=== PATIENT | female | born 1955 | race Caucasian/White ===

== ENCOUNTER 2016-12-15 09:44 | Day surgery (SDC) | payer BC ==
[2016-12-11 13:20] VITALS: BMI 34.3
[~2016-12-15 09:44] MED LIST: LACTATED RINGERS 1,000 ML IV SCH; LIDOCAINE 1% 20 ML VIAL (10MG/ML) FOR IV START INTRADERMA PRN
[2016-12-15 10:43] VITALS: TEMP 97
[2016-12-15] MEDS ORDERED: PROPOFOL 10 MG/ML 20 ML VIAL IV ONE (11:50)
--- NOTE | 2016-12-15 12:27 | P.PCN ---
Date of Procedure: 12/15/16 Preoperative Diagnosis: Postoperative Diagnosis: Procedure(s) Performed: Procedure: Colonoscopy and biopsy. Preoperative diagnosis: Screening for neoplasia. Postoperative diagnosis: Small distal sigmoid polyp biopsied, otherwise, exam to the cecum within normal limits. Preparation: HalfLytely prep. Sedation: Was provided by anesthesia. Brief clinical history: The patient is 61-year-old female who is referred for this evaluation for screening for neoplasia. She had a prior exam around 12 years ago. She has no abdominal complaints, bleeding or anemia. No family history of colon cancer. Procedure: With the patient on her left lateral decubitus position and after informed consent and adequate sedation, the perianal area was inspected and it did not show any fissures or fistulas. There were no masses felt on digital rectal examination. The Olympus CFQ 160L video colonoscope was then inserted in the rectum in the usual fashion and advanced to the cecum. The mucosa appeared healthy. There was a small polyp in the distal sigmoid, probably representing a hyperplastic polyp, which was biopsied but there were no large polyps or cancer. No obvious diverticular disease or other pathology. I retroflexed the endoscope in the rectum before the endoscope was withdrawn. The patient tolerated the procedure well. Plan: The patient was reassured. Will await pathology results. Consideration will be given for repeat exam in around 5 years. She will follow-up with you as planned. Implants: Indications for Procedure: Operative Findings: Description of Procedure:
[2016-12-15 12:55] VITALS: BP 132/87; PULSE 63; RESP 18
== END 2016-12-15 13:20 | disposition home or self-care (01) ==
LOC: ORWHC2ENDO 09:44
DX: Z12.11 Encounter for screening for malignant neoplasm of colon (principal); D12.5 Benign neoplasm of sigmoid colon; E78.5 Hyperlipidemia, unspecified; G47.33 Obstructive sleep apnea (adult) (pediatric); Z99.89 Dependence on other enabling machines and devices; Z79.82 Long term (current) use of aspirin; Z79.899 Other long term (current) drug therapy; Z88.8 Allergy status to other drugs, medicaments and biological substances; Z91.09 Other allergy status, other than to drugs and biological substances
CPT/HCPCS: 88305; 45380; J2704

== ENCOUNTER → 2017-07-28 | Outpatient (CLI) | payer BC ==
--- NOTE | 2017-07-28 09:57 | BD ---
EXAMINATION TYPE: MG DEXA axial skeleton. DATE OF EXAM: 07/28/2017 COMPARISON: none CLINICAL HISTORY: osteopenia Height: 5'2 1/2 Weight: 183 FRAX RISK QUESTIONS: Alcohol (3 or more units per day): no Family History (Parent hip fracture): no Glucocorticoids (More than 3mos): no (Ex: prednisone, prednisolone, methylprednisolone, dexamethasone, and hydrocortisone). History of Fracture in Adulthood: no Secondary Osteoporosis: 1. Type 1 Diabetes: no 2. Hyperthyroidism: no 3. Menopause before 45: no 4. Malnutrition: no 5. Chronic liver disease: no Rheumatoid Arthritis: no Current Tobacco Use: no RISK FACTORS HISTORY OF: Surgery to Spine :L4-L5 When: 1997 Postmenopausal woman: MEDICATIONS: Additional Medications: cholesterol, water pill Additional History: EXAM MEASUREMENTS: Bone mineral densitometry was performed using the [employer] System. Bone mineral density about the R hip (g/cm2): 1.012 Bone mineral density about the L hip (g/cm2): 1.016 T Score values are as follows: -----R Neck: -0.2 -----L Neck: -0.2 -----R Total: 0.2 -----L Total: 0.7 IMPRESSION: No evidence for osteoporosis or osteopenia. NOTE: T-SCORE=SD OF THE YOUNG ADULT MEAN.
--- NOTE | 2017-07-29 10:57 | MM ---
Reason for exam: screening (asymptomatic). Last mammogram was performed 1 year and 4 months ago. History: Patient is postmenopausal. Family history of breast cancer in sister at age 54. Benign excisional biopsy of the left breast, 2002. Benign excisional biopsy of the right breast, 2000. Taking hormonal contraceptives for 15 years. Took estrogen for 10 years. Physical Findings: A clinical breast exam by your physician is recommended on an annual basis and results should be correlated with mammographic findings. MG Screening Mammo w CAD Bilateral CC and MLO view(s) were taken. Prior study comparison: April 03, 2016, mammogram, performed at [facility]. March 30, 2015, mammogram, performed at [facility]. March 28, 2014, mammogram, performed at [facility]. March 21, 2013, mammogram, performed at [facility]. Finding: There are typically benign fine, coarse, diffuse calcifications in both breasts. Previous mammotome biopsy in the left breast. No significant changes in finding since April 03, 2016, March 30, 2015, March 28, 2014, and March 21, 2013. ASSESSMENT: Benign, BI-RAD 2 RECOMMENDATION: Routine screening mammogram of both breasts in 1 year.
== END | disposition home or self-care (01) ==
LOC: RADMAMWWP 07:33
PROVIDERS: ATTEND Obstetrics & Gynecology
DX: Z12.31 Encounter for screening mammogram for malignant neoplasm of breast (principal); M85.80 Other specified disorders of bone density and structure, unspecified site
CPT/HCPCS: 77067; 77080

== ENCOUNTER → 2017-08-06 | Outpatient (CLI) | payer BC ==
--- NOTE | 2017-08-06 12:21 | PN ---
PROGRESS NOTE FOLLOW-UP VISIT DATE OF SERVICE: 08/06/2017 A 62-year-old lady had been followed in sleep center for treatment of obstructive sleep apnea-hypopnea syndrome. Patient is on treatment for obstructive sleep apnea for more than 5 years. Last visit 1 year ago. She continued to use her equipment every night for the whole night without problems. Sometimes she has slight noise from her machine. Otherwise, her machine works well. She does not have problem with humidity, pressure or mask. [place] Sleepiness Scale today is 3. I checked her CPAP unit. CPAP pressure is 8 cm of water, which has been prescribed. Usage is 28/30 nights for more than 4 hours. Apnea-hypopnea index reading from the machine is around 3, which is normal range. No leak from the mask by the reading from the machine. MEDICATIONS: Hydrochlorothiazide, simvastatin, aspirin. PHYSICAL EXAM: During physical exam, patient in no distress. VITAL SIGNS: BP 133/73, HR 66, RR 16, height 5 feet 2-1/2 inches, weight 180, BMI 32.3, temperature 97.9 oxygen saturation room air 100%. HEENT: PERRLA, EOMI. Oropharynx moderately low position of soft palate. NECK: Supple, no JVD. Thyroid is not palpable. LUNGS: Clear to percussion and to auscultation. Good air exchange. No wheezing or rhonchi. HEART: S1, S2 regular. No murmurs, gallops, or rubs. ABDOMEN: Slightly obese. EXTREMITIES: No clubbing or cyanosis. COMMUNICATIONS INSTRUCTOR: Awake, alert, and oriented X3. Cranial nerves 2 to 7 intact. There is no fasciculation or atrophy. noted. No focal deficits observed. IMPRESSION: 1. Obstructive sleep apnea-hypopnea syndrome on full control with CPAP at 8 cm of water. Patient demonstrated practically 100% compliance with treatment benefitting from treatment. 2. Mild obesity. 3. Hyperlipidemia. 4. History of back problems with herniated disc issues. 5. History of episodes of headaches in the past. 6. History of vertigo in the past. PLAN: 1. Continue treatment with CPAP every night for the whole night. 2. Watching and losing weight. The patient lost 13 pounds since previous visit. 3. Sleep hygiene with regular time in bed for at least 7-1/2 hours. 4. Patient is eligible to receive new CPAP unit. Her CPAP unit is more than 5 years old. If she will have any problem with her CPAP unit in the future, we will write for her prescription for new CPAP unit. Presently mild noise from the machine, otherwise machine works well. 5. Follow-up visit in 1 year or earlier if patient has any problems. Thank you very much for allowing me to participate in management of your patient. Sincerely, Christian Shin MD, PhD, FAASM Diplomat of [employer] Rag Cutting Machine Operator of [facility] [place] MMODL / IJN: [id number] /
== END | disposition home or self-care (01) ==
LOC: SLEEP 11:01
PROVIDERS: ATTEND Internal Medicine
DX: G47.33 Obstructive sleep apnea (adult) (pediatric) (principal); E66.9 Obesity, unspecified; E78.5 Hyperlipidemia, unspecified; Z79.899 Other long term (current) drug therapy; Z79.82 Long term (current) use of aspirin

== ENCOUNTER → 2018-05-03 | Outpatient (CLI) | payer BC ==
--- NOTE | 2018-05-03 15:29 | US ---
EXAMINATION TYPE: US kidneys/renal and bladder DATE OF EXAM: 05/03/2018 COMPARISON: NONE CLINICAL HISTORY: R31.2 Other microscopic hematuria. EXAM MEASUREMENTS: Right Kidney: 11.6 x 4.9 x 5.3 cm Left Kidney: 11.1 x 5.4 x 4.5 cm Right Kidney: prominent renal pelvis vs mild hydro. Left Kidney: echogenic foci, possible stone measuring 0.4 x 0.3 x 0.4cm Bladder: wnl There is no evidence for left-sided hydronephrosis at this point in time. No definite right-sided guy al calculi identified. No masses are identified. The urinary bladder is anechoic. Bilateral uretera l jets are seen. IMPRESSION: 1. Prominence of the right renal pelvis versus mild hydronephrosis. 2. Nonobstructing calculus left kidney.
== END | disposition home or self-care (01) ==
LOC: RADUSWWP 14:56
PROVIDERS: ATTEND Family Medicine
DX: N20.0 Calculus of kidney (principal)
CPT/HCPCS: 76770

== ENCOUNTER → 2018-07-29 | Outpatient (CLI) | payer BC ==
--- NOTE | 2018-07-29 15:05 | SFUN ---
SLEEP CENTER FOLLOW UP NOTE DATE OF SERVICE: 07/29/2018 A 63-year-old lady who has been followed in the Sleep Center for treatment of obstructive sleep apnea-hypopnea syndrome. Recently patient received new CPAP unit and she started to use it successfully without any significant problems related to mask fitting, pressure or humidification. [place] Sleepiness Scale today is 4. I checked her CPAP unit. CPAP pressure is 8 cm of water. Usage is 100% of the night more than more than 4 hours, average 6.0 hours. Leak is 14 L/minutes which is acceptable. Apnea-hypopnea index is only 0.7 which is absolutely perfect. MEDICATIONS: Hydrochlorothiazide, simvastatin, aspirin. PHYSICAL EXAM: Patient in no distress. BP 123/72, HR 72, RR 16, height 5 foot 2-1/4 inches, weight 182 pounds. Body mass index 33, temperature 98.2, oxygen saturation at room air 99%. OROPHARYNX: Moderately low position of soft palate. Neck Supple, no JVD. Thyroid is not palpable. LUNGS Clear to percussion and to auscultation. Good air exchange. No wheezing or rhonchi. HEART S1, S2 regular. No murmurs, gallops, or rubs. ABDOMEN Soft and nontender. Bowel sounds are present. No organomegaly appreciated. EXTREMITIES No clubbing or cyanosis. BROOM STITCHER Awake, alert, and oriented X3. Cranial nerves 2 to 7 intact. There is no fasciculation or atrophy. noted. No focal deficits observed. IMPRESSION: 1. Obstructive sleep apnea-hypopnea syndrome. Patient demonstrated 100% compliance with new CPAP unit, benefitting from treatment. 2. Mild obesity. 3. Hyperlipidemia. 4. History of back problems with herniated disc issues. 5. History of vertigo in the past. No recent episodes. 6. History of headaches in the past. No recent episodes. PLAN: 1. Patient will continue to use CPAP equipment every night for the whole night. 2. Watching and losing weight. 3. Sleep hygiene with regular time in bed for at least 8 hours. 4. No driving if feeling sleepiness. Thank you very much for allowing me to participate in the management of your patient. Sincerely, Christian Shin MD, PhD, FAASM Diplomat of [employer] Feed Mixer Helper of [facility] [place] MMODL / IJN: [id number] /
== END | disposition home or self-care (01) ==
LOC: SLEEP 13:12
PROVIDERS: ATTEND Internal Medicine
DX: G47.33 Obstructive sleep apnea (adult) (pediatric) (principal); E66.9 Obesity, unspecified; M51.26 Other intervertebral disc displacement, lumbar region; E78.5 Hyperlipidemia, unspecified; Z99.89 Dependence on other enabling machines and devices; Z79.82 Long term (current) use of aspirin; Z79.899 Other long term (current) drug therapy; Z86.69 Personal history of other diseases of the nervous system and sense organs; Z68.33 Body mass index [BMI] 33.0-33.9, adult

== ENCOUNTER → 2018-08-05 | Outpatient (CLI) | payer BC ==
--- NOTE | 2018-08-05 16:34 | US ---
EXAMINATION TYPE: US kidneys/renal and bladder DATE OF EXAM: 08/05/2018 COMPARISON: NONE CLINICAL HISTORY: N13.30 RT hydronephrosis,R93.4 F/U. EXAM MEASUREMENTS: Right Kidney: 11.5 x 4.8 x 5.2 cm Left Kidney: 11.4 x 5.0 x 4.7 cm Right Kidney: prominent renal pelvis vs mild hydro, inferior pole appears to have at least one echoge delmer foci ? stone Left Kidney: inferior pole as at least two echogenic foci ?stones Bladder: wnl Bilateral Jets seen: yes IMPRESSION: 1. Suggestion of some mild prominence of the inferior pole collecting system of the right kidney. Thi s could suggest an underlying duplicated system. No obstructing renal stone is identified. Nonobstruc ting renal stone may be at the inferior pole right kidney. 2. Left renal stones without evidence of obstruction.
== END ==
LOC: RADUSWWP 08:02
PROVIDERS: ATTEND Urology
DX: N13.2 Hydronephrosis with renal and ureteral calculous obstruction (principal); Z88.6 Allergy status to analgesic agent; Z91.048 Other nonmedicinal substance allergy status
CPT/HCPCS: 76770

== ENCOUNTER → 2018-08-30 | Outpatient (CLI) | payer BC ==
[2018-08-30 13:17] LABS: Blood Urea Nitrogen 16 mg/dL (7-17)
--- NOTE | 2018-08-30 17:45 | CT ---
EXAMINATION TYPE: CT abdomen pelvis w con DATE OF EXAM: 08/30/2018 COMPARISON: 08/05/2018 ultrasound INDICATION: Unspecifed hydronephrosis DLP: 1423 mGycm, Automated exposure control for dose reduction was used. CONTRAST: 100 ml mL of Isovue 300. Study performed with Oral Contrast TECHNIQUE: Axial images were obtained from above the diaphragm to the pubic rami in the axial plane a t 5 mm thick sections. Reconstructed images are reviewed on the computer in the coronal plane. FINDINGS: Limited CT sections are obtained the lung bases. The lung bases are clear. CT ABDOMEN: Liver: Normal Spleen: Normal Pancreas: Normal Adrenal glands: The adrenal glands are normal. Gallbladder: Normal Kidneys: No masses are evident. No hydronephrosis is present. No cysts are present. Appears to be some mild hydroureter on the right be traced to the urinary bladder. No obstructing renal or ureteral stones. Aorta: Vascular calcification is within the aorta. Inferior vena cava: Normal. CT PELVIS: Loops of bowel within the abdomen and pelvis are normal. There are loops of bowel which are incom pletely distended or lack oral contrast limiting their evaluation. Appendix: Normal as visualized Urinary bladder: Normal. Genitourinary structures: Uterus and ovaries are not identified. No free fluid is within the pelvis. Osseous structures: No suspicious lytic or sclerotic lesions. IMPRESSIONS: 1. There is a mild right hydroureter which extends urinary bladder. No obstructing renal or ureteral stones are evident
== END ==
LOC: RADCTMAIN 12:27
PROVIDERS: ATTEND Urology
DX: N13.4 Hydroureter (principal); Z91.048 Other nonmedicinal substance allergy status
CPT/HCPCS: 82565; 84520; 74177; 36415; Q9967

== ENCOUNTER → 2018-09-06 | Outpatient (CLI) | payer BC ==
--- NOTE | 2018-09-07 09:25 | MM ---
Reason for exam: screening (asymptomatic). Last mammogram was performed 1 year and 1 month ago. History: Patient is postmenopausal. Family history of breast cancer in sister at age 54. Benign excisional biopsy of the left breast, 2002. Benign excisional biopsy of the right breast, 2000. Taking hormonal contraceptives for 15 years. Took estrogen for 10 years. Physical Findings: A clinical breast exam by your physician is recommended on an annual basis and results should be correlated with mammographic findings. MG 3D Screening Mammo W/Cad Bilateral CC and MLO view(s) were taken. Prior study comparison: July 28, 2017, bilateral MG screening mammo w CAD. April 03, 2016, mammogram, performed at [facility]. The breast tissue is heterogeneously dense. This may lower the sensitivity of mammography. There are benign appearing round dystrophic calcifications bilaterally. Previous mammotome biopsy in the left breast. There is no discrete abnormality. ASSESSMENT: Benign, BI-RAD 2 RECOMMENDATION: Routine screening mammogram of both breasts in 1 year.
== END | disposition home or self-care (01) ==
LOC: RADMAMWWP 08:37
PROVIDERS: ATTEND Obstetrics & Gynecology
DX: Z12.31 Encounter for screening mammogram for malignant neoplasm of breast (principal)
CPT/HCPCS: 77063; 77067

== ENCOUNTER → 2019-08-03 | Outpatient (CLI) | payer BC ==
--- NOTE | 2019-08-03 12:00 | SFUN ---
SLEEP CENTER FOLLOW UP NOTE DATE OF SERVICE: 08/03/2019 A 64-year-old lady who has been followed in the Sleep Center for treatment of obstructive sleep apnea-hypopnea syndrome. Last time I saw patient 1 year ago. She continued to use CPAP equipment every night for the whole night, no snoring with the machine. She is receiving all her CPAP supplies in time. [place] Sleepiness Scale today is 5. I checked the CPAP unit. CPAP pressure to 8 cm of water. Usage is 100% of nights more than 8 hours. Average usage 6.2 hours per night. Pressure is 8 cm of water. Leak is 8 L/minute, which is absolutely perfect. The patient is using nasal pillow mask [employer] FX. Apnea-hypopnea index only 0.8, which is perfect. MEDICATIONS: Simvastatin, hydrochlorothiazide, aspirin. PHYSICAL EXAM: Patient in no distress. BP 140/84, HR 70, RR 16, height 5, 2 inches, weight 189.8 pounds, body mass index 34.5, temperature 97.8, oxygen saturation at room air 99%. OROPHARYNX: Low position of soft palate, Mallampati 3-4. ABDOMEN: Obese. NECK: Supple, no JVD. Thyroid is not palpable. LUNGS: Clear to percussion and to auscultation. Good air exchange. No wheezing or rhonchi. HEART: S1, S2 regular. No murmurs, gallops, or rubs. EXTREMITIES: No clubbing or cyanosis. BEAN SPROUT GROWER: Awake, alert, and oriented X3. Cranial nerves 2 to 7 intact. There is no fasciculation or atrophy. noted. No focal deficits observed. IMPRESSION: 1. Obstructive sleep apnea-hypopnea syndrome. Patient demonstrated 100% compliance with treatment, benefitting from treatment. 2. Mild obesity, patient increased her weight 7 pounds since the previous visit. 3. Hyperlipidemia. 4. History of back problems with issues related to herniated disc. 5. History of vertigo in the past. No recent episodes. 6. History of headaches in the past. No recent episodes. PLAN: 1. Patient will continue to use CPAP equipment every night for the whole night. 2. Watching and losing weight. 3. I will maintain all necessary prescriptions including the prescription for [employer] FX nasal pillow mask, heated tube, filters. 4. Precautions related to driving. No driving if feeling sleepiness. 5. Sleep hygiene with regular time in bed for at least 8 hours. 6. Follow-up visit in 1 year or earlier if patient has any problems. Thank you very much for allowing me to participate in the management of your patient. Sincerely, Christian Shin MD, PhD, FAASM Diplomat of [employer] Ingredient Mixer of [facility] [place] MMODL / ELAINAN: [id number] /
== END | disposition home or self-care (01) ==
LOC: SLEEP 10:35
PROVIDERS: ATTEND Internal Medicine
DX: G47.33 Obstructive sleep apnea (adult) (pediatric) (principal); E66.9 Obesity, unspecified; E78.5 Hyperlipidemia, unspecified; Z86.69 Personal history of other diseases of the nervous system and sense organs; Z87.39 Personal history of other diseases of the musculoskeletal system and connective tissue; Z68.34 Body mass index [BMI] 34.0-34.9, adult; Z79.82 Long term (current) use of aspirin; Z79.899 Other long term (current) drug therapy

== ENCOUNTER → 2020-04-26 | Outpatient (CLI) | payer MEDICARE ==
--- NOTE | 2020-04-30 09:14 | MM ---
Reason for exam: screening (asymptomatic). Last mammogram was performed 1 year and 8 months ago. History: Patient is postmenopausal and had first child at age 37. Family history of breast cancer in sister at age 54. Benign excisional biopsy of the left breast, 2002. Benign excisional biopsy of the right breast, 2000. Took hormonal contraceptives for 15 years. Took estrogen for 10 years. Physical Findings: A clinical breast exam by your physician is recommended on an annual basis and results should be correlated with mammographic findings. MG 3D Screening Mammo W/Cad Bilateral CC and MLO view(s) were taken. Prior study comparison: September 06, 2018, bilateral MG 3d screening mammo w/cad. July 28, 2017, bilateral MG screening mammo w CAD. There are scattered fibroglandular densities. Finding #1: There is an oval mass in the middle position of the right breast. Finding #2: There are calcifications in both breasts. No significant changes in finding since September 06, 2018 and July 28, 2017. ASSESSMENT: Benign, BI-RAD 2 RECOMMENDATION: Routine screening mammogram of both breasts in 1 year.
== END | disposition home or self-care (01) ==
LOC: RADMAMWWP 11:35
PROVIDERS: ATTEND Obstetrics & Gynecology
DX: Z12.31 Encounter for screening mammogram for malignant neoplasm of breast (principal)
CPT/HCPCS: 77063; 77067

== ENCOUNTER → 2020-09-05 | Outpatient (CLI) | payer MEDICARE ==
--- NOTE | 2020-09-05 18:00 | SFUN ---
SLEEP CENTER FOLLOW UP NOTE DATE OF SERVICE: 09/05/2020 This patient is a 65-year-old lady who has been followed in Sleep Center for treatment of obstructive sleep apnea-hypopnea syndrome. The patient continues to use her CPAP equipment every night for the whole night. Sometimes she has problems with falling asleep. [place] Sleepiness Scale today is 5. I checked her CPAP unit. CPAP pressure is 8 cm of water. Usage is 100% of nights for more than 4 hours. Average 5.8 hours per night. Leak is 12 L/minute, which is borderline. Apnea-hypopnea index is only 1.3, which is totally perfect. MEDICATIONS: Simvastatin 40 mg once a day, hydrochlorothiazide 50 mg once a day, tramadol 50 mg as needed. PHYSICAL EXAMINATION: GENERAL: A pleasant patient in no distress. VITAL SIGNS: BP 145/75, HR 88, RR 12, height 5 feet 2-1/2 inches, weight pounds, temperature 97.8, oxygen saturation at room air 98%. HEENT: PERRLA, EOMI. Evaluation of oropharynx showed tongue protrudes midline. Low position of soft palate. Mallampati III to IV. NECK: Supple. No JVD. Thyroid is not palpable. LUNGS: Clear to percussion and to auscultation. Good air exchange. No wheezing or rhonchi. HEART: S1, S2 regular. No murmurs, gallops or rubs. ABDOMEN: Soft and nontender. Bowel sounds are present. No organomegaly appreciated. EXTREMITIES: No clubbing or cyanosis. TRIAL MGR: Awake, alert, and oriented X3. Cranial nerves 2 to 7 intact. There is no fasciculation or atrophy. noted. No focal deficits observed. IMPRESSION: 1. Obstructive sleep apnea-hypopnea syndrome. The patient demonstrated 100% compliance with treatment, benefitting from treatment. 2. Mild obesity; body mass index 30.2. 3. Hyperlipidemia. 4. History of back problems related to herniated disc. 5. History of vertigo in the past. No recent problems. 6. History of headaches in the past. No recent problems. PLAN: 1. Patient will continue to use PAP equipment every night for the whole night. 2. Sleep hygiene with regular time in bed for at least 7-1/2 to 8 hours. 3. Precautions related to driving. No driving if feeling sleepiness. 4. I will maintain all necessary prescription for PAP supplies including mask, tube, filters. 5. Watching weight. 6. No driving if feeling sleepiness. 7. Follow-up visit in 6 months or earlier if patient has any problems. Thank you very much for allowing me to participate in the management of your patient. Sincerely, Christian Shin MD, PhD, FAASM Diplomat of [employer] Preschool Assistant Teacher of [facility] [place] MMODL / IJN: [id number] /
== END | disposition home or self-care (01) ==
LOC: SLEEP 10:21
PROVIDERS: ATTEND Internal Medicine
DX: G47.33 Obstructive sleep apnea (adult) (pediatric) (principal); E78.5 Hyperlipidemia, unspecified; E66.9 Obesity, unspecified; Z86.69 Personal history of other diseases of the nervous system and sense organs; Z68.30 Body mass index [BMI] 30.0-30.9, adult; Z99.89 Dependence on other enabling machines and devices; Z79.891 Long term (current) use of opiate analgesic; Z79.899 Other long term (current) drug therapy

== ENCOUNTER → 2021-01-08 | Outpatient (CLI) | payer MEDICARE ==
--- NOTE | 2021-01-08 14:44 | XR ---
EXAMINATION TYPE: XR knee complete bilateral DATE OF EXAM: 01/08/2021 CLINICAL HISTORY: Bilateral knee pain TECHNIQUE: Three views of the bilateral knee are obtained. COMPARISON: None. FINDINGS: Left: No evidence of acute fracture or dislocation of the left knee. Spurring of the tibia l spines are seen. Mild medial compartment joint space narrowing and patellofemoral compartment joint space narrowing suggestive of osteoarthritis. No significant joint effusion. Soft tissues are unrema rkable. Right knee: No evidence of fracture or dislocation of the right knee. Mild medial and patellofemoral compartment joint space narrowing with spurring of the medial femoral condyle, and tibial spines. The se findings are suggestive of osteoarthritis. Soft tissues are unremarkable. No significant joint eff usion. IMPRESSION: 1. No acute fracture or dislocation of the bilateral knees. Mild bilateral osteoarthritis of the knee s as described above.
== END | disposition home or self-care (01) ==
LOC: RADXRYALE 09:56
PROVIDERS: ATTEND Physician Assistant Medical
DX: M17.0 Bilateral primary osteoarthritis of knee (principal)

== ENCOUNTER → 2021-05-07 | Outpatient (CLI) | payer MEDICARE ==
--- NOTE | 2021-05-08 10:42 | MM ---
Reason for exam: screening (asymptomatic). Last mammogram was performed 1 year ago. History: Patient is postmenopausal and had first child at age 37. Family history of breast cancer in sister at age 54. Benign excisional biopsy of the left breast, 2002. Benign excisional biopsy of the right breast, 2000. Took hormonal contraceptives for 15 years. Took estrogen for 10 years. Physical Findings: A clinical breast exam by your physician is recommended on an annual basis and results should be correlated with mammographic findings. MG 3D Screening Mammo W/Cad Bilateral CC and MLO view(s) were taken. Prior study comparison: April 26, 2020, bilateral MG 3d screening mammo w/cad. September 06, 2018, bilateral MG 3d screening mammo w/cad. The breast tissue is heterogeneously dense. This may lower the sensitivity of mammography. Stable benign calcifications. There is no discrete abnormality. No significant changes when compared with prior studies. ASSESSMENT: Benign, BI-RAD 2 RECOMMENDATION: Routine screening mammogram of both breasts in 1 year.
== END | disposition home or self-care (01) ==
LOC: RADMAMWWP 09:00
PROVIDERS: ATTEND Obstetrics & Gynecology
DX: Z12.31 Encounter for screening mammogram for malignant neoplasm of breast (principal); Z80.3 Family history of malignant neoplasm of breast; Z78.0 Asymptomatic menopausal state
CPT/HCPCS: 77063; 77067

== ENCOUNTER → 2021-05-24 | Outpatient (CLI) | payer MEDICARE ==
--- NOTE | 2021-05-24 14:19 | XR ---
EXAMINATION TYPE: XR hand complete LT DATE OF EXAM: 05/24/2021 CLINICAL HISTORY: Hand in particular thumb pain for 3 weeks TECHNIQUE: Frontal, lateral and oblique images of the left hand are obtained. COMPARISON: None. FINDINGS: There is no acute fracture/dislocation evident in the left hand. Mild to moderate narrowin g base of first metacarpal. Mild narrowing throughout the PIP and DIP joints of the phalanges . Mild narrowing first interphalangeal joint. Relative sparing of MCP joints. No significant spurring. Mild- to-moderate diffuse soft tissue swelling. IMPRESSION: As above.
== END | disposition home or self-care (01) ==
LOC: RADXRYALE 08:54
PROVIDERS: ATTEND Physician Assistant
DX: M25.842 Other specified joint disorders, left hand (principal)

== ENCOUNTER → 2021-05-30 | Outpatient (CLI) | payer MEDICARE ==
--- NOTE | 2021-05-30 11:48 | SFUN ---
SLEEP CENTER FOLLOW UP NOTE DATE OF SERVICE: 05/30/2021 66-year-old lady has been followed in Sleep Center for treatment of obstructive sleep apnea-hypopnea syndrome. The patient continued to use her CPAP equipment every night for the whole night getting her supplies in time. [place] Sleepiness Scale today is only 2. I checked her CPAP unit, pressure is 8 cm of water. Usage is 100% of nights and 26/30 nights for the last months more than 4 hours. Average 5.3 hours per night which is good compliance. Leak is 10 L/minute which is normal. Apnea-hypopnea index is only 0.5 which is absolutely perfect. CURRENT MEDICATIONS: Hydrochlorothiazide 50 mg once a day, simvastatin 40 mg once a day, tramadol 50 mg once a day. PHYSICAL EXAMINATION: GENERAL: Patient in no distress. BP 160/79, HR 82, RR 15, height 5 feet 2-1/2 inches, weight 185 pounds, body mass index 33.2, temperature 97.8, oxygen saturation at room air 98%. Oropharynx: Low position of soft palate, Mallampati 3-4. NECK: Supple, no JVD. Thyroid is not palpable. LUNGS: Clear to percussion and to auscultation. Good air exchange. No wheezing or rhonchi. HEART: S1, S2 regular. No murmurs, gallops, or rubs. ABDOMEN: Soft and nontender. Bowel sounds are present. No organomegaly appreciated. EXTREMITIES: No clubbing or cyanosis. BULL RIDER: Awake, alert, and oriented X3. Cranial nerves 2 to 7 intact. There is no fasciculation or atrophy. noted. No focal deficits observed. IMPRESSION: 1. Obstructive sleep apnea-hypopnea syndrome. Patient demonstrated great compliance with treatment benefitting from treatment. 2. Mild obesity, BMI 33.2. 3. Hyperlipidemia. 4. History of back problems related to herniated disk. 5. Increased blood pressures today in the office. 6. History of vertigo in the past. Occasionally episodes of vertigo. 7. History of episodes of headaches. PLAN: 1. Monitoring blood pressure, low-sodium diet. 2. Change air filter immediately in bad shape. 3. Patient will continue to use PAP equipment every night for the whole night. 4. Sleep hygiene with regular time in bed for at least 7-1/2 to 8 hours. 5. Precautions related to driving. No driving if feeling sleepiness. 6. I will maintain all necessary prescription for PAP supplies including mask, tube, filters. 7. Watching weight. 8. Follow-up visit in 6 months or earlier if patient has any problems. Thank you very much for allowing me to participate in management of your patient. Sincerely, Christian Shin MD, PhD, FAASM Diplomat of [place] [employer] Sleep Medicine Board of [place] [employer] Information And Referral Director of [facility] [place] MMODL / ELAINAN: [id number] /
== END ==
LOC: SLEEP 11:03
PROVIDERS: ATTEND Internal Medicine
DX: G47.33 Obstructive sleep apnea (adult) (pediatric) (principal); E66.9 Obesity, unspecified; E78.5 Hyperlipidemia, unspecified; R03.0 Elevated blood-pressure reading, without diagnosis of hypertension; R42 Dizziness and giddiness; Z87.39 Personal history of other diseases of the musculoskeletal system and connective tissue; Z68.33 Body mass index [BMI] 33.0-33.9, adult; Z87.898 Personal history of other specified conditions; Z88.6 Allergy status to analgesic agent; Z91.041 Radiographic dye allergy status

== ENCOUNTER → 2021-11-27 | Outpatient (CLI) | payer MEDICARE ==
--- NOTE | 2021-11-27 13:46 | SFUN ---
SLEEP CENTER FOLLOW UP NOTE DATE OF SERVICE: 11/27/2021 This 66-year-old lady has been followed in Sleep Center for treatment of obstructive sleep apnea-hypopnea syndrome. The patient continues to use her CPAP equipment every night. Sometimes she falls asleep in the evening while watching TV and then has difficulties initiating sleep. I checked her CPAP unit. Pressure is 8 cm of water. Usage is 30/30 nights for more than 4 hours, average 5.9 hours per night. Leak is 12 L/minute, which is in normal range. Apnea-hypopnea index is , which is normal. [place] Sleepiness Scale 3. MEDICATIONS: 1. Simvastatin 40 mg once a day. 2. Hydrochlorothiazide 50 mg once a day. 3. Tramadol mg as needed. PHYSICAL EXAMINATION: GENERAL: Pleasant patient in no distress. VITAL SIGNS: BP 138/76, HR 64, RR 14, height 5 feet 2-1/2 inches, weight 193 pounds, temperature 96.8, oxygen saturation at room air 99%. HEENT: PERRLA, EOMI, evaluation of oropharynx showed tongue protrudes midline. Low position of soft palate; Mallampati III to IV. NECK: Supple, no JVD. Thyroid is not palpable. LUNGS: Clear to percussion and to auscultation. Good air exchange. No wheezing or rhonchi. HEART: S1, S2 regular. No murmurs, gallops, or rubs. ABDOMEN: Soft and nontender. Bowel sounds are present. No organomegaly appreciated. EXTREMITIES: No clubbing or cyanosis. CHEST PAINTING AND SEALING SUPERVISOR: Awake, alert, and oriented X3. Cranial nerves 2 to 7 intact. There is no fasciculation or atrophy. noted. No focal deficits observed. IMPRESSION: 1. Obstructive sleep apnea-hypopnea syndrome. Patient demonstrated 100% compliance with treatment. Normal respiration on CPAP, benefitting from treatment. 2. History of vertigo in the past. Occasionally she still has episodes of vertigo. 3. Hyperlipidemia. 4. Mild obesity. 5. History of back problems related to herniated disk. 6. History of headaches. PLAN: 1. Patient will continue to use PAP equipment every night for the whole night. 2. Sleep hygiene with regular time in bed for at least 7-1/2 to 8 hours. 3. Precautions related to driving. No driving if feeling sleepiness. 4. I will maintain all necessary prescription for PAP supplies including mask, tube, filters. 5. Watching weight. 6. Follow-up visit in 6 months or earlier if patient has any problems. Thank you very much for allowing me to participate in the management of your patient. Sincerely, Christian Shin MD, PhD, FAASM Diplomat of [place] [employer] Sleep Medicine Board of [place] [employer] [facility] [place] MMODL / ELAINAN: [id number] /
== END ==
LOC: SLEEP 09:44
PROVIDERS: ATTEND Internal Medicine
DX: G47.33 Obstructive sleep apnea (adult) (pediatric) (principal); Z99.89 Dependence on other enabling machines and devices; E78.5 Hyperlipidemia, unspecified; E66.9 Obesity, unspecified; Z86.69 Personal history of other diseases of the nervous system and sense organs; Z87.39 Personal history of other diseases of the musculoskeletal system and connective tissue; Z88.6 Allergy status to analgesic agent; Z91.041 Radiographic dye allergy status

== ENCOUNTER → 2022-05-08 | Outpatient (CLI) | payer MEDICARE ==
--- NOTE | 2022-05-08 09:28 | MM ---
Reason for Exam: Screening (asymptomatic). Last screening mammogram was performed 12 month(s) ago. Patient History: Menarche at age 13. First Full-Term at age 37. Late child-bearing (after 30). Left ovary removed at age 52. Right ovary removed at age 52. Hysterectomy at age 52. Postmenopausal. Patient used Estrogen for 10 years. Patient used Hormonal Contraceptives for 15 years. 2000, Benign Excisional Biopsy on the right side. 2002, Benign Excisional Biopsy on the left side. Sister had breast cancer, age 54. Risk Values: Shey 5 year model risk: 5.1%. NCI Lifetime model risk: 16.6%. Prior Study Comparison: 09/06/2018 Bilateral Screening Mammogram, [facility]. 04/26/2020 Bilateral Screening Mammogram, [facility]. 05/07/2021 Bilateral Screening Mammogram, [facility]. Tissue Density: The breast tissue is heterogeneously dense. This may lower the sensitivity of mammography. Findings: Analyzed By CAD. There is no suspicious group of microcalcifications or new suspicious mass in either breast. Stable benign calcifications bilaterally. No significant change from prior exams. Overall Assessment: Benign, BI-RAD 2 Management: Screening Mammogram of both breasts in 1 year. A clinical breast exam by your physician is recommended on an annual basis and results should be correlated with mammographic findings. Electronically signed and approved by: Cameron Virk D.O.
--- NOTE | 2022-05-08 17:07 | BD ---
EXAMINATION TYPE: Axial Bone Density DATE OF EXAM: 05/08/2022 CLINICAL HISTORY: 67 years year old Female. ICD-10 CODE: M859 DISORDER OF BONE DENSITY AND STRUCTURE Height: 5 FT 2 1/ 2IN Weight: 193 FRAX RISK QUESTIONS: Alcohol (3 or more units per day): NO Family History (Parent hip fracture): NO Glucocorticoids (More than 3mos): NO (Ex: prednisone, prednisolone, methylprednisolone, dexamethasone, and hydrocortisone). History of Fracture in Adulthood: NO Secondary Osteoporosis: 1. Type 1 Diabetes: NO 2. Hyperthyroidism: NO 3. Menopause before 45: NO 4. Malnutrition: NO 5. Chronic liver disease: NO Rheumatoid Arthritis: NO Current Tobacco Use: NO RISK FACTORS HISTORY OF: Surgery to Spine/Hip(right/left)/Wrist (right/left): LUMBAR When: 1997 Family History of Osteoporosis: NO Active: YES Diet low in dairy products/other sources of calcium: NO Postmenopausal woman: YES Take estrogen and/or progesterone medications: NONE NOW Lost more than 2 inches in height since high school: NO Frequent falls: NO Poor Health: GOOD Hyperparathyroidism: NO Adrenal Insufficiency: NO MEDICATIONS: Additional Medications: SIMVASTATIN, H2O PILL, Additional History: EXAM MEASUREMENTS: Bone mineral density about the R hip (g/cm2): 0.962 Bone mineral density about the L hip (g/cm2): 0.991 T Score values are as follows: -----R Neck: -0.5 -----L Neck: -0.3 -----R Total: 0.0 -----L Total: 0.4 Bone mineral density has: DECREASED -3.5 % since study of: 2018 Bone mineral density about the L Wrist (g/cm2): 0.649 T Score values are as follows: -----Dist. R+U: -0.3 -----Prox. R+U: -0.5 -----Radius total: -0.4 FIRST TIME WRIST HAS BEEN DONE FRAX%s: The graph provided illustrates a 7.1 % chance for a major osteoporotic fx and a 0.4 % chance for the hips probability for fx in 10 years time. IMPRESSION: Normal (Values between +1 and -1 indicate normal bone mass). Consider repeating this study in 5 year s or sooner if there is some new clinical indication. NOTE: T-SCORE=SD OF THE YOUNG ADULT MEAN.
== END | disposition home or self-care (01) ==
LOC: RADMAMWWP 06:38
PROVIDERS: ATTEND Family Medicine
DX: Z12.31 Encounter for screening mammogram for malignant neoplasm of breast (principal); Z78.0 Asymptomatic menopausal state; Z80.3 Family history of malignant neoplasm of breast
CPT/HCPCS: 77063; 77067; 77080

== ENCOUNTER 2022-06-03 11:01 | Day surgery (SDC) | payer MEDICARE ==
[2022-05-30 15:06] VITALS: BMI 34.7
[~2022-06-03 11:01] MED LIST changes: +LIDOCAINE 1% (10MG/ML) FOR IV START INTRADERMA PRN; -LIDOCAINE 1% 20 ML VIAL (10MG/ML) FOR IV START INTRADERMA PRN
[2022-06-03] MEDS ORDERED: LACTATED RINGERS 1,000 ML IV ONE (11:56)
[2022-06-03 12:08] VITALS: TEMP 97
[2022-06-03] MEDS ORDERED: PROPOFOL 10 MG/ML 20 ML VIAL IV ONE (13:47)
--- NOTE | 2022-06-03 14:08 | P.PCN ---
Date of Procedure: 06/03/22 Procedure(s) Performed: BRIEF HISTORY: Patient is a 67-year-old pleasant white female scheduled for an elective colonoscopy as a part of value should prior history of colon polyps. Her last colonoscopy was 5 years ago. PROCEDURE PERFORMED: Colonoscopy with biopsy. PREOPERATIVE DIAGNOSIS: History of colon polyps. IV sedation per Anesthesia. PROCEDURE: After informed consent was obtained, the patient, was brought into the endoscopy unit. IV sedation was administered by Anesthesia under continuous monitoring. Digital rectal examination was normal. Initially the Olympus CF-160 flexible video colonoscope was then inserted in the rectum, gradually advanced into the cecum without any difficulty. Careful examination was performed as the scope was gradually being withdrawn. Ileocecal valve and the appendiceal orifice were visualized and appeared normal. Prep was excellent. Mucosa of the cecum, ascending colon, transverse colon, appeared normal. The descending colon there was a 3-4 mm polyp sessile polyp that was removed by cold biopsy. Rest of the descending colon, sigmoid colon, and rectum appeared normal. Retroflexion was performed in the rectum and no lesions were seen. The patient tolerated the procedure well. IMPRESSION: 4 mm sessile descending colon polyp status post cold biopsy Rest of the colon appeared normal RECOMMENDATIONS: Findings of this examination were discussed with the patient as well as her family. She was advised to follow with the biopsy results. If the biopsy result adenoma she can have a repeat colonoscopy in 5 years..
[2022-06-03 14:34] VITALS: BP 132/71; PULSE 78; RESP 20
== END 2022-06-03 14:56 | disposition home or self-care (01) ==
LOC: ORWHC2ENDO 11:01
PROVIDERS: ATTEND Internal Medicine Gastroenterology
DX: K63.5 Polyp of colon (principal); Z87.19 Personal history of other diseases of the digestive system
CPT/HCPCS: 45380; J2704; 88305

== ENCOUNTER → 2022-06-11 | Outpatient (CLI) | payer MEDICARE ==
--- NOTE | 2022-06-11 11:51 | P.PN ---
Subjective DATE: [] FOLLOW UP VISIT. Patient with obstructive sleep apnea hypopnea syndrome return to sleep center for follow-up visit. Information from previous visit have been reviewed. Patient is using PAP equipment every night for the whole night, getting PAP supplies in time. The patient does not have significant problems with the mask, PAP unit and humidification. [place] sleepiness scale is 3, which is normal. I checked PAP unit. Unit is more than 5 year old, did not start right away, patient sometimes has problems to start CPAP unit at home. PAP unit pressure 8 cm H2O. Usage is 100 % for more then 4 hours, average 5.6 hours per night. Leak is 12 l/m, which is in acceptable range. Apnea Hypopnea Index is 1.3, which is normal. MEDICATIONS:1. Simvastatin 40 mg once a day 2. Hydrochlorothiazide 50 mg once a day 3. Tramadol 50 mg as needed During physical exam: GENERAL: A pleasant patient without any distress. VITAL SIGNS: BP 151/79, HR 69, RR 16 , weight 191.6, temperature 98.1, oxygen saturation at room air 98 % . HEENT: PERRLA, EOMI.low position of soft palate, Mallapati 3-4 . NECK: Supple. No JVD. LUNGS: Clear to percussion and to auscultation. Good air exchange. No wheezing or rhonchi. HEART: S1, S2 regular. ABDOMEN: Soft and nontender.[] EXTREMITIES: No clubbing or cyanosis. FRENCH CORD BINDER: Awake, alert, and oriented x3. No focal deficit. Impressions: 1. Obstructive sleep apnea-hypopnea syndrome. Patient demonstrated great c ompliance with treatment, benefiting from treatment. 2. Hyperlipidemia. 3. Mild obesity. 4. History of vertigo. 5. History of back problems related to herniated disc. 6. History of headaches. Plan: 1. Continue using PAP equipment every night for the whole night. Prescription to replace CPAP unit to AutoPAP pressure 5-9 centimeters of water. 2. To change air filter at least 1-2 times per month. 3. PAP unit should stay lower then position of the head. 4. Advised patient to remove all remaining water from humidifier canister daily and make it dry after each usage. Refill canister with fresh distilled water before each usage. 5. Sleep hygiene with regular time in bed for at least 8 hours. 6. Precautions related to driving. No driving if feel any sleepiness. 7. I will maintain prescription for PAP supplies including mask, tube, filters. 8. Follow up visit in 1-2 months or earlier if patient has any problems after patient will get new CPAP unit. 9. Watching and losing weight. Thank you very much for allowing me to participate in the management of your patient. Christian Shin MD, PhD, FAASM. Diplomat of [place] [employer], Sleep Medicine Board by [place] [employer] Grain Elevator Superintendent of [facility] [place]
== END ==
LOC: SLEEP 09:53
PROVIDERS: ATTEND Internal Medicine
DX: G47.33 Obstructive sleep apnea (adult) (pediatric) (principal); E78.5 Hyperlipidemia, unspecified; E66.8 Other obesity; Z99.89 Dependence on other enabling machines and devices; Z86.69 Personal history of other diseases of the nervous system and sense organs; Z87.39 Personal history of other diseases of the musculoskeletal system and connective tissue; Z88.6 Allergy status to analgesic agent; Z91.041 Radiographic dye allergy status
CPT/HCPCS: 99212

== ENCOUNTER → 2022-09-24 | Outpatient (CLI) | payer MEDICARE ==
--- NOTE | 2022-10-08 13:36 | P.PN ---
Subjective DATE: 09/24/2022 FOLLOW UP VISIT. Patient with obstructive sleep apnea hypopnea syndrome return to sleep center for follow-up visit. Information from previous visit have been reviewed. Patient received new CPAP unit, this is first visit after starting to use new CPAP equipment. Patient is using PAP equipment every night for the whole night, getting PAP supplies in time. The patient does not have significant problems with the mask, PAP unit and humidification. [place] sleepiness scale is 2, which is perfect. I checked information from PAP unit. PAP unit pressure 5-9, average 9 cm H2O. Usage is 100 % for more then 4 hours, average 5.7 hours per night. Leak is in low range of 0.7 l/m. Apnea Hypopnea Index is 4.5, which is normal. MEDICATIONS:1. Simvastatin 40 mg once a day 2. Hydrochlorothiazide 50 mg once a day 3., Tramadol as needed During physical exam: GENERAL: A pleasant patient without any distress. VITAL SIGNS: BP 135/80, HR 84, RR 16, weight 190, temperature 98.3, oxygen saturation at room air 97 % . HEENT: PERRLA, EOMI.low position of soft palate, Mallapati 3-4 . NECK: Supple. No JVD. LUNGS: Clear to percussion and to auscultation. Good air exchange. No wheezing or rhonchi. HEART: S1, S2 regular. ABDOMEN: Soft and nontender.[] EXTREMITIES: No clubbing or cyanosis. OWNER: Awake, alert, and oriented x3. No focal deficit. Impressions: 1. Obstructive sleep apnea-hypopnea syndrome. Patient demonstrated great compli ance with treatment, benefiting from treatment. 2. Mild obesity. 3. Hyperlipidemia. 4. History of vertigo. 5. History of headaches. 6. Back problems, history of herniated disc. Plan: 1. Continue using PAP equipment every night for the whole night. I increased range of the pressure to 5-10 cm of water. 2. To change air filter at least 1-2 times per month. 3. PAP unit should stay lower then position of the head. 4. Advised patient to remove all remaining water from humidifier canister daily and make it dry after each usage. Refill canister with fresh distilled water before each usage. 5. Sleep hygiene with regular time in bed for at least 8 hours. 6. Precautions related to driving. No driving if feel any sleepiness. 7. I will maintain prescription for PAP supplies including mask, tube, filters. 8. Watching and losing weight. 9. Follow up visit in 6 months or earlier if patient has any problems. Thank you very much for allowing me to participate in the management of your patient. Christian Shin MD, PhD, FAASM. Diplomat of [place] [employer], Sleep Medicine Board by [place] [employer] Restaurant Shift Leader of [facility] [place]
== END ==
LOC: SLEEP 13:28
PROVIDERS: ATTEND Internal Medicine
DX: G47.33 Obstructive sleep apnea (adult) (pediatric) (principal); E66.9 Obesity, unspecified; E78.5 Hyperlipidemia, unspecified; H81.4 Vertigo of central origin; Z86.69 Personal history of other diseases of the nervous system and sense organs; Z99.89 Dependence on other enabling machines and devices; Z88.6 Allergy status to analgesic agent; Z91.041 Radiographic dye allergy status
CPT/HCPCS: 99212

== ENCOUNTER → 2023-05-11 | Outpatient (CLI) | payer MEDICARE ==
--- NOTE | 2023-05-12 09:58 | MM ---
Reason for Exam: Screening (asymptomatic). Last screening mammogram was performed 12 month(s) ago. Patient History: Menarche at age 13. First Full-Term at age 37. Late child-bearing (after 30). Left ovary removed at age 52. Right ovary removed at age 52. Hysterectomy at age 52. Postmenopausal. Patient used Estrogen for 10 years. Patient used Hormonal Contraceptives for 15 years. 2000, Benign Excisional Biopsy on the right side. 2002, Benign Excisional Biopsy on the left side. Sister had breast cancer, age 54. Risk Values: Shey 5 year model risk: 5.1%. NCI Lifetime model risk: 15.9%. Prior Study Comparison: 04/26/2020 Bilateral Screening Mammogram, [facility]. 05/07/2021 Bilateral Screening Mammogram, [facility]. 05/08/2022 Bilateral MG 3D screening mammo w/cad, [facility]. Tissue Density: The breast tissue is heterogeneously dense. This may lower the sensitivity of mammography. Findings: Analyzed By CAD. Pattern appears symmetrical and stable. There are scattered calcifications present bilaterally. There are some grouped calcifications which appear stable from most recent comparison. Magnification views are recommended for documentation. No suspicious groups of microcalcifications, spiculated or lobular masses, architectural distortion or other secondary signs of malignancy are mammographically apparent. Overall Assessment: Incomplete: need additional imaging evaluation, BI-RAD 0 Management: Diagnostic Mammogram of the right breast. A negative mammogram report should not preclude additional follow up of suspicious palpable abnormalities. Patient should continue monthly self breast exam. A clinical breast exam by your physician is recommended on an annual basis and results should be correlated with mammographic findings. Electronically signed and approved by: Troy Funez D.O. Radiologis
== END | disposition home or self-care (01) ==
LOC: RADMAMWWP 07:39
PROVIDERS: ATTEND Family Medicine
DX: Z12.31 Encounter for screening mammogram for malignant neoplasm of breast (principal); Z80.3 Family history of malignant neoplasm of breast; Z78.0 Asymptomatic menopausal state
CPT/HCPCS: 77063; 77067

== ENCOUNTER → 2023-05-20 | Outpatient (CLI) | payer MEDICARE ==
--- NOTE | 2023-05-20 10:27 | MM ---
Reason for Exam: Additional evaluation requested from abnormal screening. Last screening mammogram was performed less than 1 month ago. Patient History: Menarche at age 13. First Full-Term at age 37. Late child-bearing (after 30). Left ovary removed at age 52. Right ovary removed at age 52. Hysterectomy at age 52. Postmenopausal. Patient used Estrogen for 10 years. Patient used Hormonal Contraceptives for 15 years. 2000, Benign Excisional Biopsy on the right side. 2002, Benign Excisional Biopsy on the left side. Sister had breast cancer, age 54. Risk Values: Shey 5 year model risk: 5.1%. NCI Lifetime model risk: 15.9%. Prior Study Comparison: 04/03/2016 Screening Mammogram, [facility]. 07/28/2017 Bilateral Screening Mammogram, [facility]. 09/06/2018 Bilateral Screening Mammogram, [facility]. 04/26/2020 Bilateral Screening Mammogram, [facility]. 05/07/2021 Bilateral Screening Mammogram, [facility]. 05/08/2022 Bilateral MG 3D screening mammo w/cad, [facility]. 05/11/2023 Bilateral MG 3D screening mammo w/cad, [facility]. Tissue Density: Right: There are scattered fibroglandular densities. Findings: Analyzed By CAD. Grouped microcalcifications approximately 7:00 right breast middle depth appear to be new from older priors and gradually increasing from recent prior. Punctate morphology. Tissue sampling recommended. Additional small benign round calcifications and milk of calcium demonstrated elsewhere in the breast. Overall Assessment: Suspicious, BI-RAD 4 Management: Stereotactic Core Biopsy of the right breast. Electronically signed and approved by: Sarahy Portillo M.D. Radiologist
== END | disposition home or self-care (01) ==
LOC: RADMAMWWP 09:50
PROVIDERS: ATTEND Family Medicine
DX: R92.321 Mammographic fibroglandular density, right breast (principal); R92.0 Mammographic microcalcification found on diagnostic imaging of breast; Z78.0 Asymptomatic menopausal state; Z80.3 Family history of malignant neoplasm of breast
CPT/HCPCS: 77065; G0279; 77061

== ENCOUNTER → 2023-06-01 | Day surgery (SDC) | payer MEDICARE ==
[2023-06-01 07:53] VITALS: RESP 16
[2023-06-01 08:57] VITALS: BP 138/80; PULSE 73; TEMP 98.1
== END ==
LOC: RADMAMWWP 07:03
PROVIDERS: ATTEND Family Medicine
DX: N60.81 Other benign mammary dysplasias of right breast (principal)
CPT/HCPCS: 19081; A4648; J2001; 88305

== ENCOUNTER → 2023-10-08 | Outpatient (CLI) | payer MEDICARE ==
--- NOTE | 2023-10-08 17:50 | P.PN ---
Subjective DATE: DATE: 10/08/2023 FOLLOW UP TELEMEDICINE APPOINTMENT. Patient have been followed for treatment of obstructive sleep apnea hypopnea syndrome. Information from previous visit have been reviewed. Patient is using PAP equipment every night for the whole night, getting PAP supplies in time. The patient does not have significant problems with the mask, PAP unit and humidification. I checked information from PAP unit using [employer] and explain it to the patient in details. PAP unit pressure 5-10, average 10.0 cm H2O. Usage is 100% for more then 4 hours, average 6.5 hours per night. Leak is in perfect range 1.6 l/m. Apnea Hypopnea Index is 5.3, which is borderline. Patient sleeps well, no snoring. MEDICATIONS: 1. Simvastatin 2. Hydrochlorothiazide According to patient her weight now is 185 pounds which on 6 pounds less than during previous visit. Impressions: 1. Obstructive sleep apnea-hypopnea syndrome. Patient demonstrated great compliance with treatment, benefiting from treatment. 2. Hyperlipidemia. 3. History of headaches. 4. History of vertigo. 5. Back problems with history of herniated disc. 6. Mild obesity. Plan: 1. Continue using PAP equipment every night for the whole night. 2. To change air filter at least 1-2 times per month. 3. PAP unit should stay lower then position of the head. 4. Advised patient to remove all remaining water from humidifier canister daily and make it dry after each usage. Refill canister with fresh distilled water before each usage. 5. Sleep hygiene with regular time in bed for at least 8 hours. 6. Precautions related to driving. No driving if feel any sleepiness. 7. I will maintain prescription for PAP supplies including mask, tube, filters. 8. Watching weight. 9. Follow up visit in 6 months or earlier if patient has any problems. Thank you very much for allowing me to participate in the management of your patient. Christian Shin MD, PhD, FAASM. Diplomat of [place] [employer], Sleep Medicine Board by [place] [employer] Telegraph Equipment Maintainer of [facility] [place]
== END ==
LOC: 3 N SLEEP 16:24
PROVIDERS: ATTEND Internal Medicine
DX: G47.33 Obstructive sleep apnea (adult) (pediatric) (principal); E78.5 Hyperlipidemia, unspecified; E66.9 Obesity, unspecified; M54.50 Low back pain, unspecified; Z98.890 Other specified postprocedural states; Z99.89 Dependence on other enabling machines and devices; Z86.69 Personal history of other diseases of the nervous system and sense organs; Z88.1 Allergy status to other antibiotic agents; Z88.6 Allergy status to analgesic agent
CPT/HCPCS: 99212

== ENCOUNTER → 2023-12-04 | Outpatient (CLI) | payer MEDICARE ==
--- NOTE | 2023-12-04 08:03 | MM ---
Reason for Exam: Follow-up at short interval from prior study. Last screening mammogram was performed 7 month(s) ago. Patient History: Menarche at age 13. First Full-Term at age 37. Late child-bearing (after 30). Left ovary removed at age 52. Right ovary removed at age 52. Hysterectomy at age 52. Postmenopausal. Patient has history of breast feeding. Patient used Estrogen for 10 years. Patient used Hormonal Contraceptives for 15 years. 06/01/2023, Benign MG stereo VAD BX RT on the right side. 2000, Benign Excisional Biopsy on the right side. 2002, Benign Excisional Biopsy on the left side. Sister had breast cancer, age 54. Risk Values: Shey 5 year model risk: 5.1%. NCI Lifetime model risk: 15.9%. Prior Study Comparison: 07/28/2017 Bilateral Screening Mammogram, [facility]. 09/06/2018 Bilateral Screening Mammogram, [facility]. 04/26/2020 Bilateral Screening Mammogram, [facility]. 05/07/2021 Bilateral Screening Mammogram, [facility]. 05/08/2022 Bilateral MG 3D screening mammo w/cad, [facility]. 05/11/2023 Bilateral MG 3D screening mammo w/cad, [facility]. 05/20/2023 Right MG 3D work up w/cad RT, [facility]. Tissue Density: Right: The breasts are heterogeneously dense, which may obscure small masses. Findings: Analyzed By CAD. Pattern appears stable. Scattered calcifications are present. The core biopsy marker is present. No suspicious groups of microcalcifications, spiculated or lobular masses, architectural distortion or other secondary signs of malignancy are mammographically apparent. Overall Assessment: Benign, BI-RAD 2 Management: Screening Mammogram of both breasts in 6 months. A negative mammogram report should not preclude additional follow up of suspicious palpable abnormalities. Patient should continue monthly self breast exam. A clinical breast exam by your physician is recommended on an annual basis and results should be correlated with mammographic findings. Note on Shey scores and lifetime risk: 1. A Shey score greater than 3% is considered moderate risk. If this is the case, consider specialist referral to assess eligibility for a risk reducing agent. 2. If overall lifetime risk for the development of breast cancer is 20% or higher, the patient may qualify for future screening with alternating mammogram and breast MRI. Electronically signed and approved by: Troy Funez D.O. Radiologis
== END | disposition home or self-care (01) ==
LOC: RADMAMWWP 07:33
PROVIDERS: ATTEND Family Medicine
DX: R92.331 Mammographic heterogeneous density, right breast (principal); R92.1 Mammographic calcification found on diagnostic imaging of breast; Z80.3 Family history of malignant neoplasm of breast; Z78.0 Asymptomatic menopausal state
CPT/HCPCS: 77065; G0279; 77061

== ENCOUNTER → 2023-12-30 | Outpatient (CLI) | payer MEDICARE ==
--- NOTE | 2023-12-30 09:55 | XR ---
EXAMINATION TYPE: XR knee complete RT DATE OF EXAM: 12/30/2023 CLINICAL HISTORY: pain TECHNIQUE: Three views of the right knee are obtained. COMPARISON: None. FINDINGS: There is no acute fracture/dislocation. The tri-compartment joint spaces appear mildly na rrowed. The overlying soft tissue appears unremarkable. IMPRESSION: There is no acute fracture or dislocation.ICD 10 NO FRACTURE, INITIAL EVALUATION
== END | disposition home or self-care (01) ==
LOC: RADXRYALE 09:27
PROVIDERS: ATTEND Physician Assistant Medical
DX: M17.11 Unilateral primary osteoarthritis, right knee (principal)

== ENCOUNTER → 2024-04-13 | Outpatient (CLI) | payer MEDICARE ==
[2024-04-13 13:34] VITALS: BP 129/76; PULSE 80; RESP 16; TEMP 97.9
--- NOTE | 2024-04-13 13:58 | P.PROGSL ---
Subjective DATE: 04/13/2024 FOLLOW UP VISIT. Patient with obstructive sleep apnea hypopnea syndrome return to sleep center for follow-up visit. Information from previous visit have been reviewed. Patient is using PAP equipment every night for the whole night, getting PAP supplies in time. The patient does not have significant problems with the mask, PAP unit and humidification. Mcbain sleepiness scale is 1, which is perfect. I checked information from PAP unit. PAP unit pressure 5-10, average 10 cm H2O. Usage is 100% for more then 4 hours, average 6.2 hours per night. Leak is 4 l/m, which is in normal range. Apnea Hypopnea Index is slightly increased to 5.8, during the last night it was 8.5. MEDICATIONS have been reviewed, please see below. During physical exam: GENERAL: A pleasant patient without any distress. VITAL SIGNS: Please see below, weight is 192.8 lbs. HEENT: PERRLA, EOMI.low position of soft palate, Mallapati 3 . NECK: Supple. No JVD. LUNGS: Clear to percussion and to auscultation. Good air exchange. No wheezing or rhonchi. HEART: S1, S2 regular. ABDOMEN: Soft and nontender. Obese EXTREMITIES: No clubbing or cyanosis. GEOSPATIAL SPECIALIST: Awake, alert, and oriented x3. No focal deficit. Impressions: 1. Obstructive sleep apnea-hypopnea syndrome. Patient demonstrated great compliance with treatment, benefiting from treatment, AHI slightly increased. 2. Obesity, weight 192.8 pounds, patient increased weight on around 7 pounds. 3. History of headaches. 4. History of vertigo. 5. Hyperlipidemia. 6. Back problems with history of herniated disc. I changed pressure in CPAP unit to the range 5 to 12 cm of water AutoPap. Plan: 1. Continue using PAP equipment every night for the whole night. 2. Sleep hygiene with regular time in bed for at least 7.5-8 hours 3. PAP unit should stay lower then position of the head. 4. Advised patient to remove all remaining water from humidifier canister daily and make it dry after each usage. Refill canister with fresh distilled water before each usage. 5. Watching and losing weight. 6. Precautions related to driving. No driving if feel any sleepiness. 7. I will maintain prescription for PAP supplies including mask, tube, filters. 8. Follow up visit in 8 months or earlier if patient has any problems. Thank you very much for allowing me to participate in the management of your patient. Christian Shin MD, PhD, FAASM. Diplomat of [place] [employer], Sleep Medicine Board by [place] [employer] [facility] [place] cc: Benito Brunner DO Objective - Vital Signs Vital Signs: Vital Signs Temp 97.9 F 04/13/24 13:31 Pulse 80 04/13/24 13:31 Resp 16 04/13/24 13:31 BP 129/76 04/13/24 13:31 Pulse Ox 97 04/13/24 13:31 FiO2 Intake & Output 04/12/24 04/13/24 04/13/24 18:59 06:59 18:59 Weight 87.317 kg Home Medications: Home Medications Medication Instructions Recorded Confirmed Type Aspirin 81 mg PO DAILY 12/11/16 06/01/23 History Calcium Carbonate/Vitamin D3 1 each PO DAILY 12/11/16 06/01/23 History [Calcium 500-Vit D3 200 Tablet] Multivitamin [Multiple Vitamins] 1 each PO DAILY 12/11/16 06/01/23 History Simvastatin [Zocor] 40 mg PO HS 12/11/16 06/01/23 History hydroCHLOROthiazide [Hydrodiuril] 50 mg PO DAILY 12/11/16 06/01/23 History Biotin [Biotin Disolve] 5,000 mcg PO DAILY 05/30/22 06/01/23 History Cholecalciferol [Vitamin D3 (25 50 mcg PO DAILY 05/30/22 06/01/23 History Mcg = 1000 Iu)] Fish Oil/Dha/Epa [Fish Oil 1,200 1 each PO DAILY 05/30/22 06/01/23 History mg Fish Oil] Meclizine [Antivert] 12.5 mg PO DIRECTED 04/13/24 04/13/24 History Simvastatin 40 mg PO DAILY 04/13/24 04/13/24 History hydroCHLOROthiazide [Hydrodiuril] 50 mg PO DAILY 04/13/24 04/13/24 History traMADol HCl [Ultram] 50 mg PO DIRECTED 04/13/24 04/13/24 History
== END ==
LOC: 3 N SLEEP 13:12
PROVIDERS: ATTEND Internal Medicine
CPT/HCPCS: 99212

== ENCOUNTER → 2024-06-10 | Outpatient (CLI) | payer MEDICARE ==
--- NOTE | 2024-06-13 08:57 | MM ---
Reason for Exam: Screening (asymptomatic). Last mammogram was performed 1 year(s) and 1 month(s) ago. Patient History: Menarche at age 13. First Full-Term at age 37. Late child-bearing (after 30). Left ovary removed at age 52. Right ovary removed at age 52. Hysterectomy at age 52. Postmenopausal. Patient has history of breast feeding. Patient used Estrogen for 10 years. Patient used Hormonal Contraceptives for 15 years. 06/01/2023, Benign MG stereo VAD BX RT on the right side. 2000, Benign Excisional Biopsy on the right side. 2002, Benign Excisional Biopsy on the left side. Sister had breast cancer, age 54. Risk Values: Shey 5 year model risk: 5.2%. NCI Lifetime model risk: 15.3%. Prior Study Comparison: 05/11/2023 Bilateral MG 3D screening mammo w/cad, [facility]. 05/20/2023 Right MG 3D work up w/cad RT, [facility]. 12/04/2023 Right MG 3D diag mammo w/cad RT, [facility]. Tissue Density: The breasts are heterogeneously dense, which may obscure small masses. Findings: Analyzed By CAD. Right breast: There is no suspicious group of microcalcifications or new suspicious mass. Left breast: Asymmetry left breast best appreciated 3-D imaging slice 37/71 posterior nipple line on cc view approximately 6.2 cm from the nipple. Possibly superior middle depth on MLO view. Overall Assessment: Incomplete: need additional imaging evaluation, BI-RAD 0 Management: Diagnostic Mammogram of the left breast. [facility] will attempt to contact patient to return for supplemental views and ultrasound if indicated. Patient should continue monthly self-breast exams. A clinical breast exam by your physician is recommended on an annual basis. This exam should not preclude additional follow-up of suspicious palpable abnormalities. Note on Shey scores and lifetime risk: 1. A Shey score greater than 3% is considered moderate risk. If this is the case, consider specialist referral to assess eligibility for a risk reducing agent. 2. If overall lifetime risk for the development of breast cancer is 20% or higher, the patient may qualify for future screening with alternating mammogram and breast MRI. [facility], , 06/13/2024 8:54 AM. Electronically signed and approved by: Harsh Dickens DO
== END | disposition home or self-care (01) ==
LOC: RADMAMWWP 08:19
PROVIDERS: ATTEND Family Medicine
DX: Z12.31 Encounter for screening mammogram for malignant neoplasm of breast (principal); R92.333 Mammographic heterogeneous density, bilateral breasts; Z80.3 Family history of malignant neoplasm of breast
CPT/HCPCS: 77063; 77067

== ENCOUNTER → 2024-06-24 | Outpatient (CLI) | payer MEDICARE ==
--- NOTE | 2024-06-24 08:38 | MM ---
Reason for Exam: Additional evaluation requested from prior study. Last screening mammogram was performed less than 1 month ago. Patient History: Menarche at age 13. First Full-Term at age 37. Late child-bearing (after 30). Left ovary removed at age 52. Right ovary removed at age 52. Hysterectomy at age 52. Postmenopausal. Patient has history of breast feeding. Patient used Estrogen for 10 years. Patient used Hormonal Contraceptives for 15 years. 06/01/2023, Benign MG stereo VAD BX RT on the right side. 2000, Benign Excisional Biopsy on the right side. 2002, Benign Excisional Biopsy on the left side. Sister had breast cancer, age 54. Risk Values: Shey 5 year model risk: 5.2%. NCI Lifetime model risk: 15.3%. Prior Study Comparison: 05/20/2023 Right MG 3D work up w/cad RT, [facility]. 12/04/2023 Right MG 3D diag mammo w/cad RT, [facility]. 06/10/2024 Bilateral MG 3D screening mammo w/cad, [facility]. Tissue Density: Left: There are scattered areas of fibroglandular density. Findings: Analyzed By CAD. Tissue disperses normally on compression. No persistent suspicious density identified. No suspicious groups of microcalcifications, spiculated or lobular masses, architectural distortion or other secondary signs of malignancy are mammographically apparent. Overall Assessment: Probably benign, BI-RAD 3 Management: Diagnostic Mammogram of the left breast in 6 months. A negative mammogram report should not preclude additional follow up of suspicious palpable abnormalities. Patient should continue monthly self breast exam. A clinical breast exam by your physician is recommended on an annual basis and results should be correlated with mammographic findings. Note on Shey scores and lifetime risk: 1. A Shey score greater than 3% is considered moderate risk. If this is the case, consider specialist referral to assess eligibility for a risk reducing agent. 2. If overall lifetime risk for the development of breast cancer is 20% or higher, the patient may qualify for future screening with alternating mammogram and breast MRI. [facility], , 06/24/2024 8:35 AM. Electronically signed and approved by: Troy Funez D.O. Radiologis
== END | disposition home or self-care (01) ==
LOC: RADMAMWWP 08:02
PROVIDERS: ATTEND Family Medicine
DX: R92.8 Other abnormal and inconclusive findings on diagnostic imaging of breast (principal); R92.323 Mammographic fibroglandular density, bilateral breasts; Z78.0 Asymptomatic menopausal state; Z80.3 Family history of malignant neoplasm of breast; Z90.722 Acquired absence of ovaries, bilateral
CPT/HCPCS: 77065; G0279; 77061

== ENCOUNTER → 2025-01-20 | Outpatient (CLI) | payer MEDICARE ==
--- NOTE | 2025-01-20 08:40 | MM ---
Reason for Exam: Follow-up at short interval from prior study. Last screening mammogram was performed 8 month(s) ago. Patient History: Menarche at age 13. First Full-Term at age 37. Late child-bearing (after 30). Left ovary removed at age 52. Right ovary removed at age 52. Hysterectomy at age 52. Postmenopausal. Patient has history of breast feeding. Patient used Estrogen for 10 years. Patient used Hormonal Contraceptives for 15 years. 06/01/2023, Benign MG stereo VAD BX RT on the right side. 2000, Benign Excisional Biopsy on the right side. 2002, Benign Excisional Biopsy on the left side. Sister had breast cancer, age 54. Risk Values: Shey 5 year model risk: 5.2%. NCI Lifetime model risk: 15.3%. Tissue Density: The breasts are heterogeneously dense, which may obscure small masses. Findings: Analyzed By CAD. Mammotome biopsy clip in the bilateral breasts are redemonstrated. There is 6 mm oval circumscribed mass in the right breast redemonstrated. There are several small benign-appearing round and dystrophic calcifications in the left breast again seen. No suspicious new mass or distortion in either breast. Overall Assessment: Benign, BI-RAD 2 Management: Screening Mammogram of both breasts in 1 year. . Results were given to the patient verbally at the time of exam. Patient should continue monthly self-breast exams. A clinical breast exam by your physician is recommended on an annual basis. This exam should not preclude additional follow-up of suspicious palpable abnormalities. Note on Shey scores and lifetime risk: 1. A Shey score greater than 3% is considered moderate risk. If this is the case, consider specialist referral to assess eligibility for a risk reducing agent. 2. If overall lifetime risk for the development of breast cancer is 20% or higher, the patient may qualify for future screening with alternating mammogram and breast MRI. [facility], , 01/20/2025 8:37 AM. Electronically signed and approved by: Julian Hickey M.D.
== END | disposition home or self-care (01) ==
LOC: RADMAMWWP 08:02
PROVIDERS: ATTEND Family Medicine
DX: R92.8 Other abnormal and inconclusive findings on diagnostic imaging of breast (principal); R92.333 Mammographic heterogeneous density, bilateral breasts; Z78.0 Asymptomatic menopausal state; Z80.3 Family history of malignant neoplasm of breast
CPT/HCPCS: 77062; 77066